=== PATIENT | male | born 1935 | race Caucasian/White ===

== ENCOUNTER → 2019-02-13 | Outpatient (CLI) | payer OTHER ==
[~2019-02-13] VITALS: Ht 180.3 cm; Wt 104.3 kg
[~2019-02-13] MED LIST: ALLEGRA ALLERG180 MG PO; APAP650 PO; ASPIRIN81 M2 PO; BENAZEPRIL HCL40 MG PO; COREG6.25 MG PO; FISH OIL 1,001000 M2 PO; FLEXERIL PO; FLONASE 0.05%50 MCG NASAL; FLOVENT HFA 4444 MCG INH; FOLIC ACID1 MG PO; GINKGO BILOBA40 M1 PO; GLUCOPHAGE1000 MG PO; GLUCOSAMINE HC500 MG PO; GLUCOTROL5 MG PO; GLYCOLAX119 GM PO; HYDRALAZINE 10M10 MG PO; IRON325 PO; K-DUR10 MEQ PO; KENALOG100 GM TOP; LAMISIL125 ML PO; LASIX 20 MG TAB20 MG PO; LIPITOR80 MG PO; LUMITENE30 MG PO; NITROGLYCERIN0.4 MG SUBLING; NORVASC10 MG PO; PREVAGEN PO; PROAIR RESPICL90 MCG INH; PULMICORT0.5 MG/22 INH; VITAMIN B-1100 M1 PO; VITAMIN C250 MG PO; XANAX 0.5 MG0.5 MG PO
[2019-02-13 11:07] LABS: HEMATOCRIT 38.8 % (42.0-52.0); MCH 29.7 pg (26.0-34.0); MCHC 33.6 g/dL (28.0-37.0); MCV 88.3 fL (80.0-100.0); MPV 8.6 fl. (7.2-11.1); RBC 4.39 mil/uL (4.50-6.00); RDW-CV 14.5 % (10.5-14.5); WBC 8.4 thou/uL (4.0-11.0)
[2019-02-13 11:13] LABS: ANION GAP 8 mmol/L (7-16); APTT 23.2 Seconds (25.0-31.3); BUN 17 mg/dL (7-18); CALCIUM 9.7 mg/dL (8.5-10.1); CHLORIDE 104 mmol/L (98-107); CO2 30 mmol/L (21-32); CREATININE 1.2 mg/dL (0.6-1.3); GLUCOSE 159 mg/dL (70-99); POTASSIUM 4.4 mmol/L (3.5-5.1); PROTIME 10.6 Seconds (9.20-11.50); SODIUM 142 mmol/L (136-145)
[2019-02-13 11:18] LABS: ALBUMIN 3.7 g/dL (3.4-5.0); ALKALINE PHOSPHATASE 69 U/L (46-116); CHOLESTEROL 158 mg/dL (<200); HDL CHOLESTEROL 37 mg/dL (>40); LDL CHOLESTEROL 74 mg/dL (<100); SGOT 29 U/L (15-37); SGPT 36 U/L (30-65); TC:HDL 4.3 Ratio (Not establshd); TOTAL BILIRUBIN 0.2 mg/dL (<0.1-1.0); TOTAL PROTEIN 6.9 g/dL (6.4-8.2); TRIGLYCERIDE 239 mg/dL (<150); VLDL 48 mg/dL (<40)
[2019-02-13 11:20] LABS: SERUM ASSESSMENT Clear
[2019-02-13 11:59] VITALS: BP 125/77
--- NOTE | 2019-02-13 15:56 | EKG ---
[place] [address] ELECTROCARDIOGRAM REPORT Name: DEMARCOASAD Room: [facility]#: [id number] Admission: 02/13/19 Attend Phys: Gurpreet Gomez MD, F Discharge: Date of : 39 Report #: [id number] THIS REPORT FOR: //name// [facility] Test Date: 2019-02-13 Test Time: 12:21:56 Pat Name: ASAD PAL Department: Room: Gender: Saturator: : 1935 Requested By: Gurpreet Gomez Order Number: [id number] Dorcas MD: Gurpreet Gomez Measurements Intervals [place] Rate: 67 P: 36 SC: 184 QRS: -58 QRSD: 93 T: 55 QT: 325 QTc: 343 Interpretive Statements Sinus rhythm Ventricular trigeminy Left axis deviation Low voltage, extremity leads No previous ECG available for comparison Electronically Signed On 02-13-2019 15:55:58 CDT by Gurpreet Gomez [email or web address] <ELECTRONICALLY SIGNED> By: Gurpreet Gomez MD, [facility] 02/13/19 1555 1221 1221 Gurpreet Gomez MD, FACC /EPI
--- NOTE | 2019-02-17 08:36 | CARD ---
[address] [address] CARDIAC CATH REPORT Name: ASAD PAL Room: [facility] NAMITA MinMarisabel#: [id number] Admission: 02/13/19 Attend Phys: Gurpreet Gomez MD, F Discharge: Date of : 39 Report #: [id number] THIS REPORT FOR: //name// APPROVED REPORT Study performed: 02/13/2019 12:44:30 Patient Details Patient Status: Out-Patient Room #: The patient is a 83 year-old male Event Personnel Gurpreet Gomez, Light Coil Winder, Marjan Bright, Transitional Care Manager, Allan Vásquez, Monitor, Harriett Tee, Scrub Procedures Performed cardiac cath Indication Positive stress test, Chest pain Risk Factors Arterial Hypertension, Hypercholesterolemia, Diabetes Previous Procedures/Diagnoses Previous PCI Admission/Lab Medications/Medications given during procedure Heparin Unfract. Procedure Narrative The patient was brought electively to the Cardiac Catheterization Laboratory and was prepped and draped in a sterile manner. The right wrist was infiltrated with 1% Lidocaine subcutaneous anesthesia. A 6 sheath was inserted into the right radial artery. Coronary angiography was performed using coronary diagnostic catheters. The right coronary system was accessed and visualized with a Diagnostic JR 4 catheter. The left coronary system was accessed and visualized with a Diagnostic JL 3.5 catheter. The left ventricle was accessed and visualized with a Diagnostic Angled Pigtail catheter. Left ventricular/Aortic Valve gradient assessed via catheter pullback. Left ventriculogram was performed in ROSAS projection. Closure device was deployed with a 6 Fr vascband. The patient tolerated the procedure well and there were no complications associated with the procedure. There was no hematoma. [address] [address] CARDIAC CATH REPORT Name: ASAD PAL Room: [facility]#: [id number] Admission: 02/13/19 Attend Phys: Gurpreet Gomez MD, F Discharge: Date of : 39 Report #: [id number] Coronary Angiography The patient's coronary anatomy is right dominant. Diagnostic Cath Left Main 30% distal stenosis noted LAD 30% proximal stenosis. Stent in mid LAD had no restenosis. Diagonal 1 ostial 40% stenosis Circumflex 0% stenosis R PDA 30% proximal stenosis. Stent in mid RCA with 0% stenosis. Left Ventriculography The left ventricle is normal in size with normal contractility. The left ventricular ejection fraction is estimated to be 50-55%. Left ventricular wall motion abnormalities are not present. There is no mitral insufficiency. Hemodynamics The aortic pressure is 112/57 mmHg with a mean of 81 mmHg. The left ventricular pressure is 115 mmHg with a mean of mmHg. The left ventricular end diastolic pressure is 12 mmHg. There was no gradient across the aortic valve upon pullback. Pullback from the left ventricle to the aorta revealed no gradient across the aortic valve. Conclusion 1. No restenosis of stents in the mid LAD and RCA 2. LVEF 55% Recommendations Aggressive Medical Therapy <ELECTRONICALLY SIGNED> By: Gurpreet Gomez MD, [facility] 02/17/19834 4 Gurpreet Gomez MD, [facility] /INF
== END | disposition home or self-care (01) ==
LOC: M.CL 10:09
PROVIDERS: Internal Medicine Cardiovascular Disease
DX: R07.9 Chest pain, unspecified (principal); I10 Essential (primary) hypertension; E78.5 Hyperlipidemia, unspecified; E78.00 Pure hypercholesterolemia, unspecified; G47.33 Obstructive sleep apnea (adult) (pediatric); E11.9 Type 2 diabetes mellitus without complications; Z87.891 Personal history of nicotine dependence; Z98.890 Other specified postprocedural states; Z79.899 Other long term (current) drug therapy; Z88.0 Allergy status to penicillin; Z88.6 Allergy status to analgesic agent